=== PATIENT | male | born 1980 | race Caucasian/White ===

== ENCOUNTER 2023-05-01 10:47 | Emergency (ER) | payer BC, SELFPAY ==
--- NOTE | ~2023-05-01 | XR_ITS ---
XR chest 2V DATE: 05/01/2023 12:14 INDICATION: Productive cough for 2 weeks. Nonsmoker. TECHNIQUE: 2 views COMPARISON: 03/09/2012 [place] chest FINDINGS: Normal heart size. No hilar or mediastinal enlargement. No pulmonary infiltrate or consolid ation, pleural effusion or pulmonary vascular congestion or pneumothorax. IMPRESSION: Negative Reviewed, dictated and finalized at location A. IMPRESSION: Negative
[2023-05-01 11:00] VITALS: BP 154/91; PULSE 62; RESP 16; TEMP 35.7; O2SAT 96
--- NOTE | 2023-05-01 12:33 | ED.GENADULT ---
HPI - General Adult General Chief complaint: Upper Respiratory Infection Stated complaint: cough Source: patient Mode of arrival: ambulatory Limitations: no limitations History of Present Illness HPI narrative: Patient presents for evaluation of sick symptoms for last 2 weeks. Symptoms include sinus congestion, green drainage from the nares, productive cough of green sputum, wheezing and sore throat which he attributes to coughing. He had asthma in childhood but states he outgrew it. He had a telemedicine appt one week ago. He was given a zpak and tessalon, which he took as directed. He is not sure whether the medications made much of a difference. His girlfriend was recently sick but her symptoms were more mild. no fever, chills, shortness of breath, or nausea although he had an episode of vomiting which he states was a result of a coughing episode. Related Data Home Medications Medication Instructions Recorded Confirmed nebivolol 10 mg tablet 10 mg PO DAILY 05/01/23 05/01/23 Allergies Allergy/AdvReac Type Severity Reaction Status Date / Time lisinopril Allergy Severe Cough Verified 05/01/23 11:58 Review of Systems Review of Systems: CONSTITUTIONAL: Denies fever, chills, or sweats. EYES: Denies visual changes, redness, or discharge. ENT: Reports sinus congestion, thick mucopurulent discharge from nares and sore throat. CARDIOVASCULAR: Denies chest pain, palpitations, or edema. RESPIRATORY:Reports productive cough of green sputum and wheezing. Denies shortness of breath GASTROINTESTINAL: Denies abdominal pain, nausea, vomiting, or diarrhea. GENITOURINARY: Denies dysuria or hematuria. SKIN: Denies rash or itching. MUSCULOSKELETAL: Denies back pain, joint pain, or myalgia. NEUROLOGIC: Denies headache, numbness, dizziness, or weakness. PSYCHIATRIC: Denies anxiety or depression. [facility] Past Medical History Medical History Hypertension Surgical History Surgical History No pertinent past surgical history Family History Family History Father Hypertension Mother Family history of malignant neoplasm of breast in first degree relative Other Diabetes mellitus Family history of cardiovascular disease Social History Social History Smoking status: Never smoker Alcohol intake: current Substance use: never Gender identity (if verbalized by the patient): Male Sexual Orientation (if Verbalized by the Patient): Straight or Heterosexual Spiritual care concerns: No Exam Narrative: GENERAL: Well-appearing, well-nourished, and in no acute distress. HEAD: Normocephalic, atraumatic. EYES: PERRLA and EOMI. ENT: Nares clear, no rhinorrhea or epistaxis. Mucous membranes moist. Oropharynx without tonsillar hypertrophy exudate or other lesions. Bilateral TMs pearly alvarez nonbulging NECK: Supple. No adenopathy or masses. No carotid bruits or JVD CHEST: wheezing noted in bilateral lung ramirez posteriorly. Effort nonlabored HEART: Regular rate and rhythm. No murmur heard. Normal peripheral pulses. ABDOMEN: Soft, nontender, nondistended, normal active bowel sounds. EXTREMITIES: Normal range of motion. No edema. SKIN: Warm, dry, no rash. NEURO: No focal deficits. Alert and oriented x3. PSYCH: Normal mood and affect. Course Course Emergency Course: this is a 42-year-old male who presented for evaluation of sick symptoms. Rapid strep negative. Chest x-ray normal. He meets criteria for ABRS based on duration of time he has experienced symptoms and characteristics of nasal discharge. Will discharge with Augmentin. His some wheezing on exam so also discharge him with prednisone. He indicates albuterol has not been effective in the past. Should follow-up with
== END 2023-05-01 12:37 | disposition home or self-care (01) ==
PROVIDERS: Emergency Provider Nurse Practitioner; PCP Internal Medicine
DX: J45.909 Unspecified asthma, uncomplicated (principal); J01.90 Acute sinusitis, unspecified; I10 Essential (primary) hypertension
CPT/HCPCS: 71046; 87081; 87880; 99213; G0463